=== PATIENT | female | born 2000 | race Caucasian/White ===

== ENCOUNTER 2023-01-05 15:31 | Inpatient (IN) | payer OTHER ==
[2023-01-05 16:42] LABS: Fetal Membranes Rupture RUPTURE DETECTED (No Rupture)
[2023-01-05 17:36] VITALS: BMI 33.5
[2023-01-05] MEDS ORDERED: Butorphanol Tartrate 1 MG/ML VIAL SLOW IVP PRN (17:41)
[2023-01-05] MEDS ORDERED: Methylergonovine 0.2 MG/ML VIAL IM PRN (17:41)
[2023-01-05] MEDS ORDERED: Carboprost 250 MCG/ML AMP IM PRN (17:41)
[2023-01-05] MEDS ORDERED: Ondansetron PF 4 MG/2 ML Vial IVP PRN (17:41)
[2023-01-05] MEDS ORDERED: Acetaminophen 500 MG TAB PO PRN (17:41)
[2023-01-05] MEDS ORDERED: Docusate 100 MG CAP PO PRN (17:41)
[2023-01-05] MEDS ORDERED: Tranexamic Acid 1,000 MG/10 ML VIAL IVP PRN (17:41)
[2023-01-05] MEDS ORDERED: Promethazine HCl 25 MG/ML VIAL IM PRN (17:41)
[2023-01-05] MEDS ORDERED: Misoprostol 200 MCG TAB PR PRN (17:41)
[2023-01-05] MEDS ORDERED: Diphenoxylate HCl/Atropine Tablet PO PRN (17:41)
[2023-01-05] MEDS ORDERED: hydrALAZINE 20 MG/ML VIAL SLOW IVP PRN (17:41)
[2023-01-05] MEDS ORDERED: Ibuprofen 800 MG TAB PO PRN (17:43)
[2023-01-05] MEDS ORDERED: Lidocaine 1% (PF) 30 ML VIAL SC PRN (17:43)
[2023-01-05] MEDS ORDERED: Acetaminophen/Codeine 30-300mg Tablet PO PRN (17:43)
[2023-01-05] MEDS ORDERED: HYDROcodone/Acetaminophen 5/325 mg Tablet PO PRN (17:43)
[2023-01-05] MEDS ORDERED: NS w/ Oxytocin 30 units 500 ML IV SCH (17:45)
[2023-01-05] MEDS ORDERED: Penicillin G Potassium 5 MILL.UNITS in Sodium Chloride 0.9% 100 ML IVPB SCH (17:45)
[2023-01-05] MEDS: Lactated Ringer's 1,000 ML IV SCH (18:16)
[2023-01-05 18:49] LABS: Hemoglobin 11.9 g/dL (12.0-15.5); Mean Corpuscular HGB CONC 32.5 g/dL (32.0-36.0); Mean Corpuscular Hemoglobin 26.3 pg (27.0-33.0); Mean Corpuscular Volume 80.8 fl (81.6-98.3); Mean Platelet Volume 11.5 fl (7.4-10.4); Platelet Count 240 10x3/uL (150-450); RBC Distribution Width 12.9 % (11.5-14.5); Red Blood Cell (RBC) Count 4.53 10x6/uL (3.90-5.03)
[2023-01-05 19:09] LABS: HBSAg Index 0.15 S/CO (0-0.99); Hep B Surf Ag - L&D Non-Reactive S/CO (NonReactive); Syphilis Antibody Nonreactive (Nonreactive); Syphilis Antibody Index 0.03 S/CO (<1.00 Non-Reactive)
[2023-01-05] MEDS: Penicillin G 2.5 MILL.units 2.5 MILL.UNITS in Premix Bag 1 BAG IVPB SCH (22:06)
[2023-01-05] MEDS ORDERED: Calcium Carbonate 500 MG ChewTAB PO SCH (22:45)
[2023-01-06] MEDS: Penicillin G 2.5 MILL.units 2.5 MILL.UNITS in Premix Bag 1 BAG IVPB SCH ×6 (02:07→22:33)
[2023-01-06] MEDS ORDERED: Azithromycin 500 MG in Sodium Chloride 0.9% 250 ML 250 ML IVPB SCH (08:15)
[2023-01-06] MEDS: Lactated Ringer's 1,000 ML IV SCH ×2 (11:11→18:00)
[2023-01-06] MEDS ORDERED: NS w/ Oxytocin 30 units 500 ML IVPB SCH (15:30)
[2023-01-06] MEDS ORDERED: fentaNYL/Ropivacaine Epidural 100 ML ONE (18:07)
[2023-01-06] MEDS ORDERED: Lactated Ringer's 500 ML IV PRN (18:52)
[2023-01-06] MEDS ORDERED: Ondansetron PF 4 MG/2 ML Vial IVP PRN (18:52)
[2023-01-06] MEDS ORDERED: Acetaminophen 325 MG TAB PO PRN (18:52)
[2023-01-06] MEDS ORDERED: Promethazine HCl 25 MG/ML VIAL IM PRN (18:52)
[2023-01-06] MEDS ORDERED: Moisturizing Cream (Eucerin) 113 GM JAR TOP PRN (18:52)
[2023-01-06] MEDS ORDERED: ePHEDrine Sulfate 50 MG/10 ML VIAL SLOW IVP PRN (18:52)
[2023-01-06] MEDS ORDERED: diphenhydrAMINE 50 MG/ML VIAL IVP PRN (18:52)
[2023-01-06] MEDS ORDERED: Naloxone HCl 0.4 mg/ml Vial IVP PRN ×2 (18:52)
[2023-01-06] MEDS ORDERED: fentaNYL 2 mcg/Ropivacaine 0.2% Epidural 100 ML CADD EPIDURAL SCH (19:00)
[2023-01-06] MEDS ORDERED: Communication Order-Pharmacy FS SCH (19:00)
[2023-01-07] MEDS ORDERED: Methylergonovine 0.2 MG/ML VIAL ONE (03:03)
[2023-01-07] MEDS ORDERED: diphenhydrAMINE 25 MG CAP PO PRN (03:11)
[2023-01-07] MEDS ORDERED: Ondansetron PF 4 MG/2 ML Vial IVP PRN (03:11)
[2023-01-07] MEDS ORDERED: Milk Of Magnesia 30 ML UDCUP PO PRN (03:11)
[2023-01-07] MEDS ORDERED: Bisacodyl 10 MG SUPP PR PRN (03:11)
[2023-01-07] MEDS ORDERED: Boostrix 0.5 ML (Tdap) VIAL (>/=7 yrs of age) IM ONE (03:11)
[2023-01-07] MEDS ORDERED: hydrALAZINE 20 MG/ML VIAL SLOW IVP PRN (03:11)
[2023-01-07] MEDS ORDERED: Zolpidem Tartrate 5 MG TAB PO PRN (03:11)
[2023-01-07] MEDS ORDERED: Lidocaine 1% (PF) 30 ML VIAL ONE (03:18)
[2023-01-07] MEDS: Ibuprofen 800 MG TAB PO SCH ×3 (05:10→21:10)
[2023-01-07] MEDS: Lactated Ringer's 1,000 ML IV SCH (05:18)
[2023-01-07] MEDS ORDERED: Witch Hazel-Glycerin 1 EACH JAR TOP PRN (05:19)
[2023-01-07] MEDS: Penicillin G 2.5 MILL.units 2.5 MILL.UNITS in Premix Bag 1 BAG IVPB SCH (05:19)
[2023-01-07] MEDS: Polyethylene Glycol 3350 17 GM Packet PO SCH ×2 (08:53→21:10)
[2023-01-07] MEDS: Ferrous Sulfate 325 MG TAB PO SCH ×2 (08:53→20:47)
[2023-01-07] MEDS: Docusate 100 MG CAP PO SCH ×2 (08:53→21:10)
[2023-01-07] MEDS ORDERED: Benzocaine-Menthol 82.5 ML CAN TOP PRN (09:17)
[2023-01-08 03:30] LABS: Hemoglobin 8.3 g/dL (12.0-15.5)
[2023-01-08] MEDS: Ibuprofen 800 MG TAB PO SCH ×2 (06:03→14:28)
[2023-01-08 07:52] VITALS: BP 110/64; TEMP 97.6
[2023-01-08] MEDS: Ferrous Sulfate 325 MG TAB PO SCH (09:03)
[2023-01-08] MEDS: Docusate 100 MG CAP PO SCH (09:03)
[2023-01-08] MEDS: Polyethylene Glycol 3350 17 GM Packet PO SCH (09:03)
== END 2023-01-08 18:15 | disposition home or self-care (01) | DRG 806 ==
LOC: CSHLD/OP 15:31 → CSHLD 17:39 → CSHPP 01-07 07:50
PROVIDERS: ADMIT Obstetrics & Gynecology; ATTEND Obstetrics & Gynecology
PROC: 10D07Z6 Extraction of Products of Conception, Vacuum, Via Natural or Artificial Opening (ICD-10-PCS; principal; 2023-01-07)
PROC: 0KQM0ZZ Repair Perineum Muscle, Open Approach (ICD-10-PCS; 2023-01-07)
PROC: 0UQMXZZ Repair Vulva, External Approach (ICD-10-PCS; 2023-01-07)
DX: O42.02 Full-term premature rupture of membranes, onset of labor within 24 hours of rupture (principal); O72.1 Other immediate postpartum hemorrhage; Z37.0 Single live birth; Z3A.40 40 weeks gestation of pregnancy; O76 Abnormality in fetal heart rate and rhythm complicating labor and delivery; O99.824 Streptococcus B carrier state complicating childbirth; O70.0 First degree perineal laceration during delivery; O75.81 Maternal exhaustion complicating labor and delivery; O63.1 Prolonged second stage (of labor)
CPT/HCPCS: 84112; 85014; 85018; 85027; 86762; 86780; 86850; 86900; 86901; 87340; J0456; J2210; J2540; J2590; J3490; J7050; J7120